=== PATIENT | male | born 1935 | race Caucasian/White ===

== ENCOUNTER 2017-09-02 15:12 | Emergency (ER) | payer OTHER, MEDICARE ==
--- NOTE | 2017-09-02 15:20 | PDOC ---
History of Present Illness - General History Source: Patient, Family Exam Limitations: No Limitations - History of Present Illness Initial Comments: 09/02/17 15:41 The patient is a 82 year old male, with a significant past medical history of asthma, COPD, hypertension, and prostate cancer, who presents to the emergency department with a cough for approximately 1 week. The patient reports his cough is nonproductive, with associated shortness of breath, wheezing, chest discomfort, and rib pain. Patient reports he has been taking Prednisone, Symbicort, and Nebulizer(Albuterol) treatments with minimal relief. However, patient reports Robitussin and cough drops temporarily alleviate his cough. He denies any recent fever, chills, headache, dizziness, nasal congestion or sore throat. He denies any diaphoresis, palpitations, or lower extremity edema. As per daughter, the patient has been in contact with his , who had flu-like symptoms and has been taking Tamiflu and Azithromycin. Patient currently denies any abdominal pain, nausea, vomiting, diarrhea, or constipation. He denies any dysuria, hematuria, frequency, or urgency. Allergies: NKDA Past Surgical History: None reported. Social History: Former matthew. Non smoker. No ETOH or recreational drug use. PCP: Dr. Villa Brusher Hand: Dr. De La Cruz <Claudy Gaming - Last Filed: 09/02/17 15:50> <Waylon Flowers - Last Filed: 09/06/17 07:36> - General Chief Complaint: Cold Symptoms Stated Complaint: cough Time Seen by Provider: 09/02/17 15:15 Past History <Claudy Gaming - Last Filed: 09/02/17 15:50> - Past Medical History Asthma: Yes COPD: Yes Disorders: Yes (PROSTATE CA. HORMONE THERAPY X 3 MONTHS) HTN: Yes - Suicide/Smoking/Psychosocial Hx Smoking History: Never smoked Hx Alcohol Use: Yes (SOCIAL) Drug/Substance Use Hx: No Substance Use Type: None <Waylon Flowers - Last Filed: 09/06/17 07:36> - Past Medical History Allergies/Adverse Reactions: Allergies Allergy/AdvReac Type Severity Reaction Status Date / Time No Known Allergies Allergy Verified 09/02/17 15:13 Home Medications: Ambulatory Orders Albuterol Sulfate Inhaler - [Ventolin HFA Inhaler -] 1 - 2 inh PO Q4H #1 inhaler 02/21/16 Budesonide/Formeterol Fumarate [SYMBICORT 160/4.5mcg -] 2 inh PO BID 02/21/16 Enalapril Maleate [Vasotec] 20 mg PO DAILY 02/21/16 Albuterol 2.5/Ipratropium 0.5 [Duoneb -] 1 amp NEB Q4H #1 box 09/02/17 Azithromycin [Zithromax -] 250 mg PO UTDICT #6 tab 09/02/17 Guaifenesin AC [Robitussin-AC] 1 - 2 tsp PO Q6H PRN #120 ml MDD 8 09/02/17 Oseltamivir Phosphate [Tamiflu] 75 mg PO BID #10 capsule 09/02/17 predniSONE [Deltasone -] 40 mg PO DAILY #30 tablet 09/02/17 Review of Systems - Review of Systems Able to Perform ROS?: Yes Comments:: 09/02/17 15:41 CONSTITUTIONAL: Absent: fever, no chills, no fatigue EYES: Absent: visual changes ENT: Absent: ear pain, no sore throat CARDIOVASCULAR: Present: chest pain Absent: no palpitations RESPIRATORY: Present: cough, wheezing, SOB GI: Absent: abdominal pain, no nausea, no vomiting, no constipation, no diarrhea GENITOURINARY: Absent: dysuria, no frequency, no hematuria MUSCULOSKELETAL: Present: Rib pain Absent: back pain, no myalgia SKIN: Absent: rash NEURO: Absent: headache <Gaming,Giomilsy - Last Filed: 09/02/17 15:50> *Physical Exam - Vital Signs Last Vital Signs Temp Pulse Resp BP Pulse Ox 98.3 F 87 20 155/88 93 L 09/02/17 15:12 09/02/17 15:12 09/02/17 15:12 09/02/17 15:12 09/02/17 15:12 - Physical Exam Comments: 09/02/17 15:50 GENERAL: Mildly tachypneic and dyspneic, with RR of 24 and O2 sat of 93 on room air. Well -appearing, well-nourished. HEENT: Normocephalic, atraumatic. PERRL, EOM intact. No posterior oropharynx erythema or exudates. NECK: No JVD, edema, or lymphadenopathy. CARDIOVASCULAR: Normal S1, S2. Regular rate and rhythm. PULMONARY: Decreased lung sounds bilaterally, but no wheezes, rales, or ronchi. There appears to be increased work of breathing. ABDOMEN: Soft, non-distended, non-tender. EXTREMITIES: Normal ROM in all four extremities. No gross deformities. SKIN: Warm, dry. No rash NEUROLOGICAL: No focal neurological deficits. <Claudy Gaming - Last Filed: 09/02/17 15:50> Medical Decision Making - Medical Decision Making Patient is much improved after nebulizer treatment. Breath sounds are full bilaterally. Respiratory rate 18 and unlabored. Oxygen saturation 97% on room air. Refill nebulizer solution with DuoNeb. Bump oral steroids. Antibiotic and Tamiflu. Close follow-up and return to ER if breathing worsens. Fully ambulatory and in no distress respiratory or otherwise at discharge with his daughter to follow-up as recommended <Waylon Flowers - Last Filed: 09/06/17 07:36> *DC/Admit/Observation/Transfer - Attestations Scribe Attestion: 09/02/17 15:43 Documentation prepared by Claudy Gaming, acting as medical operations supervisor for Waylon Loco MD. <Claudy Gaming - Last Filed: 09/02/17 15:50> - Discharge Dispostion Admit: No <Waylon Flowers - Last Filed: 09/06/17 07:36> Diagnosis at time of Disposition: Bronchitis - Discharge Dispostion Disposition: HOME Condition at time of disposition: Improved - Prescriptions Prescriptions: Albuterol 2.5/Ipratropium 0.5 [Duoneb -] 1 amp NEB Q4H #1 box Azithromycin [Zithromax -] 250 mg PO UTDICT #6 tab Guaifenesin AC [Robitussin-AC] 1 - 2 tsp PO Q6H PRN #120 ml MDD 8 PRN Reason: Cough Oseltamivir Phosphate [Tamiflu] 75 mg PO BID #10 capsule predniSONE [Deltasone -] 40 mg PO DAILY #30 tablet - Patient Instructions Printed Discharge Instructions: DI for Acute Bronchitis Additional Instructions: Medication as directed. Taper prednisone after several days if improved. Contact Dr. De La Cruz to discuss tapering regimen. Return to ER if breathing is worse, or there is high fever, chest pain.
[2017-09-02 15:33] VITALS: BP 155/88; PULSE 87; TEMP 98.3; BMI 31.6
[2017-09-02] MEDS ORDERED: ALBUTEROL SO4 2.5/IPRATROPIUM 0.5 INH SOL 3 ML VIAL.NEB. NEB ONE ×4 (15:35→16:37)
[2017-09-02] MEDS ORDERED: OSELTAMIVIR PHOSPHATE 75 MG CAPSULE PO ONE (16:25)
[2017-09-02] MEDS ORDERED: predniSONE 20 MG TABLET (UD) PO ONE (16:26)
[2017-09-02] MEDS ORDERED: predniSONE 20 MG TABLET (UD) ONE (16:37)
[2017-09-02] MEDS ORDERED: OSELTAMIVIR PHOSPHATE 75 MG CAPSULE ONE (16:37)
== END 2017-09-02 17:04 | disposition home or self-care (01) ==
LOC: FER 15:12
PROC: 3E0F7GC Introduction of Other Therapeutic Substance into Respiratory Tract, Via Natural or Artificial Opening (ICD-10-PCS; principal; 2017-09-02)
DX: J40 Bronchitis, not specified as acute or chronic (principal); J44.9 Chronic obstructive pulmonary disease, unspecified; I10 Essential (primary) hypertension; Z85.46 Personal history of malignant neoplasm of prostate
CPT/HCPCS: 71046-TC-FY; 99282-25

== ENCOUNTER 2021-12-08 16:08 | Inpatient (IN) | payer OTHER, MEDICARE ==
[2021-12-08] MEDS ORDERED: DEXAMETHASONE SOD PHOSPHATE 10 MG/1 ML VIAL IVPUSH ONE (18:02)
[2021-12-08] MEDS ORDERED: ALBUTEROL SO4 2.5/IPRATROPIUM 0.5 INH SOL 3 ML VIAL.NEB. NEB ONE ×4 (18:03→22:29)
[2021-12-08] MEDS ORDERED: DEXAMETHASONE SOD PHOSPHATE 10 MG/1 ML VIAL ONE (18:19)
[2021-12-08] MEDS ORDERED: CEFTRIAXONE 1,000 MG in DEXTROSE 5%-WATER - 50 ML IVPB ONE (18:48)
[2021-12-08] MEDS ORDERED: AZITHROMYCIN IVPB 500 MG in DEXTROSE 5%-WATER - 250 ML IVPB ONE (18:48)
[2021-12-08 19:29] LABS: VENOUS BASE EXCESS -0.4 mmol/L (-2-2); VENOUS O2 SATURATION 42.8 % (70-80); VENOUS PCO2 55.2 mmHg (38-52); VENOUS PH 7.307 (7.310-7.410)
[2021-12-08 19:30] LABS: BASO % 0.2 % (0-2.0); EOS % 0.1 % (0-4.5); HEMATOCRIT 41.3 % (35.4-49); HEMOGLOBIN 13.5 GM/dL (11.7-16.9); LYMPH % 6.7 % (8-40); MCH 29.2 pg (25.7-33.7); MCHC 32.7 g/dl (32.0-35.9); MEAN CELL VOLUME 89.4 fl (80-96); MEAN PLT VOLUME 8.8 fl (7.5-11.1); MONO % 12.4 % (3.8-10.2); NEUT % 80.6 % (42.8-82.8); PLATELET COUNT 150 10^3/uL (134-434); RBC 4.62 M/mm3 (4.00-5.60); RDW 14.1 % (11.9-15.9); WHITE BLOOD COUNT 6.1 K/mm3 (4.0-10.0)
[2021-12-08] MEDS ORDERED: CEFTRIAXONE 1 GM/50 ML BAG ONE (19:37)
[2021-12-08 19:52] LABS: ALBUMIN 3.8 g/dl (3.4-5.0); BLOOD UREA NITROGEN 19.5 mg/dL (7-18); CALCIUM 8.6 mg/dL (8.5-10.1)
[2021-12-08 19:55] LABS: CREATININE 1.2 mg/dL (0.55-1.3)
[2021-12-08 19:57] LABS: BILIRUBIN,TOTAL 0.4 mg/dL (0.2-1); TOT PROT 7.1 g/dl (6.4-8.2)
[2021-12-08] MEDS ORDERED: AZITHROMYCIN IVPB 500 MG/250 ML BAG IVPB ONE (21:16)
[2021-12-08] MEDS ORDERED: ALBUTEROL SO4 HFA INHALER IH ONE (22:29)
[2021-12-08] MEDS: ALBUTEROL SO4 HFA INHALER IH PRN (23:02)
[2021-12-09] MEDS ORDERED: ALBUTEROL SO4 2.5/IPRATROPIUM 0.5 INH SOL 3 ML VIAL.NEB. NEB ONE (00:31)
[2021-12-09] MEDS: ALBUTEROL SO4 2.5/IPRATROPIUM 0.5 INH SOL 3 ML VIAL.NEB. NEB SCH ×6 (00:34→22:07)
[2021-12-09 03:54] VITALS: BMI 33.3
[2021-12-09 08:22] LABS: BASO % 0.1 % (0-2.0); HEMATOCRIT 38.9 % (35.4-49); LYMPH % 7.3 % (8-40); MCH 29.3 pg (25.7-33.7); MCHC 33.3 g/dl (32.0-35.9); MEAN PLT VOLUME 8.8 fl (7.5-11.1); NEUT % 83.6 % (42.8-82.8); PLATELET COUNT 158 10^3/uL (134-434); RBC 4.42 M/mm3 (4.00-5.60); RDW 14.3 % (11.9-15.9); WHITE BLOOD COUNT 5.4 K/mm3 (4.0-10.0)
[2021-12-09 08:43] LABS: ALBUMIN 3.2 g/dl (3.4-5.0); BLOOD UREA NITROGEN 14.9 mg/dL (7-18); CALCIUM 8.6 mg/dL (8.5-10.1); MAGNESIUM 2.4 mg/dL (1.8-2.4)
[2021-12-09 08:46] LABS: PHOSPHOROUS 3.5 mg/dL (2.5-4.9)
[2021-12-09 08:47] LABS: BILIRUBIN,TOTAL 0.6 mg/dL (0.2-1)
[2021-12-09 08:48] LABS: TOT PROT 6.1 g/dl (6.4-8.2)
[2021-12-09] MEDS: ENALAPRIL MALEATE 10 MG TABLET PO SCH (11:34)
[2021-12-09] MEDS: ASCORBIC ACID 500 MG TABLET (FP) PO SCH (11:34)
[2021-12-09] MEDS: ZINC SULFATE 220 MG CAPSULE (FP) PO SCH (11:34)
[2021-12-09] MEDS: MULTIVITAMINS (DAILY MVI) TABLET (FP) PO SCH (11:35)
[2021-12-09] MEDS: ENOXAPARIN NA (PORCINE) 40 MG/0.4 ML DISP.SYRIN SQ SCH (11:35)
[2021-12-09] MEDS: BUDESONIDE/FORMETEROL FUMARATE 160/4.5 mcg INHALER IH SCH ×2 (11:38→21:14)
[2021-12-09] MEDS: DEXAMETHASONE SOD PHOSPHATE 4 MG/1 ML VIAL IVPUSH SCH (11:56)
[2021-12-09] MEDS ORDERED: guaiFENesin/D-METHORPHAN HB 10 ML UNIT-DOSE CUPS PO ONE (20:25)
[2021-12-09] MEDS: ALBUTEROL SO4 HFA INHALER IH PRN (21:11)
[2021-12-10] MEDS: ALBUTEROL SO4 2.5/IPRATROPIUM 0.5 INH SOL 3 ML VIAL.NEB. NEB SCH ×5 (02:28→20:38)
[2021-12-10 07:58] LABS: BASO % 0.1 % (0-2.0); HEMATOCRIT 39.9 % (35.4-49); HEMOGLOBIN 12.9 GM/dL (11.7-16.9); LYMPH % 11.9 % (8-40); MCH 28.8 pg (25.7-33.7); MCHC 32.5 g/dl (32.0-35.9); MEAN CELL VOLUME 88.6 fl (80-96); MEAN PLT VOLUME 9.1 fl (7.5-11.1); MONO % 11.3 % (3.8-10.2); NEUT % 76.7 % (42.8-82.8); PLATELET COUNT 156 10^3/uL (134-434); RDW 13.7 % (11.9-15.9); WHITE BLOOD COUNT 7.3 K/mm3 (4.0-10.0)
[2021-12-10 08:18] LABS: CALCIUM 8.1 mg/dL (8.5-10.1)
[2021-12-10 08:19] LABS: MAGNESIUM 2.2 mg/dL (1.8-2.4)
[2021-12-10 08:22] LABS: CREATININE 0.9 mg/dL (0.55-1.3); PHOSPHOROUS 3.6 mg/dL (2.5-4.9); TOT PROT 5.8 g/dl (6.4-8.2)
[2021-12-10 08:23] LABS: BILIRUBIN,TOTAL 0.2 mg/dL (0.2-1)
[2021-12-10] MEDS: DEXAMETHASONE SOD PHOSPHATE 4 MG/1 ML VIAL IVPUSH SCH (09:52)
[2021-12-10] MEDS: ZINC SULFATE 220 MG CAPSULE (FP) PO SCH (09:52)
[2021-12-10] MEDS: ENALAPRIL MALEATE 10 MG TABLET PO SCH (09:52)
[2021-12-10] MEDS: ENOXAPARIN NA (PORCINE) 40 MG/0.4 ML DISP.SYRIN SQ SCH (09:53)
[2021-12-10] MEDS: MULTIVITAMINS (DAILY MVI) TABLET (FP) PO SCH (09:53)
[2021-12-10] MEDS: ASCORBIC ACID 500 MG TABLET (FP) PO SCH (09:53)
[2021-12-10] MEDS: ALBUTEROL SO4 HFA INHALER IH PRN (10:10)
[2021-12-10] MEDS: BUDESONIDE/FORMETEROL FUMARATE 160/4.5 mcg INHALER IH SCH ×2 (11:55→21:40)
[2021-12-10] MEDS ORDERED: REMDESIVIR 200 MG in SODIUM CHLORIDE 250 ML IVPB ONE (16:45)
[2021-12-10] MEDS ORDERED: SENNOSIDES 8.6MG TABLET (FP) PO PRN (20:29)
[2021-12-10] MEDS: DOCUSATE SODIUM 100 MG CAPSULE (FP) PO SCH ×2 (21:38→21:56)
[2021-12-10] MEDS: guaiFENesin 200 MG/10 ML 10 ML UNIT-DOSE CUPS PO PRN (21:38)
[2021-12-11] MEDS: ALBUTEROL SO4 2.5/IPRATROPIUM 0.5 INH SOL 3 ML VIAL.NEB. NEB SCH ×7 (00:13→22:15)
[2021-12-11 07:34] LABS: BASO % 0.3 % (0-2.0); HEMATOCRIT 38.2 % (35.4-49); HEMOGLOBIN 12.5 GM/dL (11.7-16.9); LYMPH % 16.5 % (8-40); MCH 29.1 pg (25.7-33.7); MCHC 32.6 g/dl (32.0-35.9); MEAN CELL VOLUME 89.2 fl (80-96); MEAN PLT VOLUME 9.2 fl (7.5-11.1); MONO % 16.4 % (3.8-10.2); NEUT % 66.8 % (42.8-82.8); PLATELET COUNT 146 10^3/uL (134-434); RBC 4.28 M/mm3 (4.00-5.60); RDW 14.3 % (11.9-15.9); WHITE BLOOD COUNT 4.3 K/mm3 (4.0-10.0)
[2021-12-11 07:48] LABS: ALBUMIN 2.7 g/dl (3.4-5.0); CALCIUM 7.8 mg/dL (8.5-10.1)
[2021-12-11 07:49] LABS: BLOOD UREA NITROGEN 22.1 mg/dL (7-18)
[2021-12-11 07:51] LABS: CREATININE 0.8 mg/dL (0.55-1.3); PHOSPHOROUS 2.8 mg/dL (2.5-4.9)
[2021-12-11 07:53] LABS: BILIRUBIN,TOTAL 0.5 mg/dL (0.2-1); TOT PROT 5.5 g/dl (6.4-8.2)
[2021-12-11] MEDS: ENALAPRIL MALEATE 10 MG TABLET PO SCH (10:51)
[2021-12-11] MEDS: ZINC SULFATE 220 MG CAPSULE (FP) PO SCH (10:51)
[2021-12-11] MEDS: MULTIVITAMINS (DAILY MVI) TABLET (FP) PO SCH (10:51)
[2021-12-11] MEDS: ASCORBIC ACID 500 MG TABLET (FP) PO SCH (10:51)
[2021-12-11] MEDS: DEXAMETHASONE SOD PHOSPHATE 4 MG/1 ML VIAL IVPUSH SCH (10:52)
[2021-12-11] MEDS: ENOXAPARIN NA (PORCINE) 40 MG/0.4 ML DISP.SYRIN SQ SCH (10:52)
[2021-12-11] MEDS: BUDESONIDE/FORMETEROL FUMARATE 160/4.5 mcg INHALER IH SCH ×2 (10:52→21:43)
[2021-12-11] MEDS: REMDESIVIR 100 MG in SODIUM CHLORIDE 250 ML IVPB SCH (15:54)
[2021-12-11] MEDS: DOCUSATE SODIUM 100 MG CAPSULE (FP) PO SCH (21:42)
[2021-12-12] MEDS: ALBUTEROL SO4 2.5/IPRATROPIUM 0.5 INH SOL 3 ML VIAL.NEB. NEB SCH ×6 (02:15→22:25)
[2021-12-12] MEDS: ENALAPRIL MALEATE 10 MG TABLET PO SCH (10:29)
[2021-12-12] MEDS: DEXAMETHASONE SOD PHOSPHATE 4 MG/1 ML VIAL IVPUSH SCH (10:30)
[2021-12-12] MEDS: ASCORBIC ACID 500 MG TABLET (FP) PO SCH (10:30)
[2021-12-12] MEDS: MULTIVITAMINS (DAILY MVI) TABLET (FP) PO SCH (10:30)
[2021-12-12] MEDS: ZINC SULFATE 220 MG CAPSULE (FP) PO SCH (10:30)
[2021-12-12] MEDS: ENOXAPARIN NA (PORCINE) 40 MG/0.4 ML DISP.SYRIN SQ SCH (10:30)
[2021-12-12] MEDS: BUDESONIDE/FORMETEROL FUMARATE 160/4.5 mcg INHALER IH SCH ×2 (10:44→21:42)
[2021-12-12 14:14] LABS: CALCIUM 8.5 mg/dL (8.5-10.1)
[2021-12-12 14:15] LABS: ALBUMIN 2.9 g/dl (3.4-5.0); BLOOD UREA NITROGEN 24.5 mg/dL (7-18)
[2021-12-12 14:18] LABS: CREATININE 0.9 mg/dL (0.55-1.3)
[2021-12-12 14:20] LABS: BILIRUBIN,TOTAL 0.3 mg/dL (0.2-1); TOT PROT 5.9 g/dl (6.4-8.2)
[2021-12-12] MEDS: REMDESIVIR 100 MG in SODIUM CHLORIDE 250 ML IVPB SCH (19:17)
[2021-12-12] MEDS: DOCUSATE SODIUM 100 MG CAPSULE (FP) PO SCH (21:42)
[2021-12-12] MEDS: guaiFENesin 200 MG/10 ML 10 ML UNIT-DOSE CUPS PO PRN (21:44)
[2021-12-13] MEDS: ALBUTEROL SO4 2.5/IPRATROPIUM 0.5 INH SOL 3 ML VIAL.NEB. NEB SCH ×6 (02:24→20:10)
[2021-12-13 07:36] LABS: BASO % 0.2 % (0-2.0); EOS % 0.3 % (0-4.5); HEMATOCRIT 40.3 % (35.4-49); LYMPH % 32.7 % (8-40); MCH 28.6 pg (25.7-33.7); MCHC 32.3 g/dl (32.0-35.9); MEAN CELL VOLUME 88.5 fl (80-96); MEAN PLT VOLUME 8.8 fl (7.5-11.1); NEUT % 53.8 % (42.8-82.8); PLATELET COUNT 161 10^3/uL (134-434); RBC 4.55 M/mm3 (4.00-5.60); WHITE BLOOD COUNT 3.4 K/mm3 (4.0-10.0)
[2021-12-13 08:41] LABS: BLOOD UREA NITROGEN 22.1 mg/dL (7-18)
[2021-12-13 08:42] LABS: ALBUMIN 2.7 g/dl (3.4-5.0); BILIRUBIN,TOTAL 0.5 mg/dL (0.2-1); PHOSPHOROUS 3.3 mg/dL (2.5-4.9)
[2021-12-13 08:43] LABS: TOT PROT 5.4 g/dl (6.4-8.2)
[2021-12-13 08:45] LABS: MAGNESIUM 2.2 mg/dL (1.8-2.4)
[2021-12-13 08:54] LABS: CREATININE 0.7 mg/dL (0.55-1.3)
[2021-12-13] MEDS: DEXAMETHASONE SOD PHOSPHATE 4 MG/1 ML VIAL IVPUSH SCH (10:05)
[2021-12-13] MEDS: MULTIVITAMINS (DAILY MVI) TABLET (FP) PO SCH (10:05)
[2021-12-13] MEDS: ZINC SULFATE 220 MG CAPSULE (FP) PO SCH (10:06)
[2021-12-13] MEDS: ASCORBIC ACID 500 MG TABLET (FP) PO SCH (10:06)
[2021-12-13] MEDS: ENALAPRIL MALEATE 10 MG TABLET PO SCH (10:07)
[2021-12-13] MEDS: ENOXAPARIN NA (PORCINE) 40 MG/0.4 ML DISP.SYRIN SQ SCH (10:07)
[2021-12-13] MEDS: BUDESONIDE/FORMETEROL FUMARATE 160/4.5 mcg INHALER IH SCH ×2 (10:08→21:33)
[2021-12-13] MEDS: REMDESIVIR 100 MG in SODIUM CHLORIDE 250 ML IVPB SCH (17:00)
[2021-12-13] MEDS: DOCUSATE SODIUM 100 MG CAPSULE (FP) PO SCH (21:31)
[2021-12-14] MEDS: ALBUTEROL SO4 2.5/IPRATROPIUM 0.5 INH SOL 3 ML VIAL.NEB. NEB SCH ×4 (02:32→15:05)
[2021-12-14 07:34] LABS: BASO % 0.1 % (0-2.0); EOS % 0.3 % (0-4.5); HEMATOCRIT 41.3 % (35.4-49); HEMOGLOBIN 13.6 GM/dL (11.7-16.9); LYMPH % 30.5 % (8-40); MEAN CELL VOLUME 87.7 fl (80-96); MEAN PLT VOLUME 8.7 fl (7.5-11.1); MONO % 9.6 % (3.8-10.2); NEUT % 59.5 % (42.8-82.8); PLATELET COUNT 182 10^3/uL (134-434); RBC 4.71 M/mm3 (4.00-5.60); RDW 13.7 % (11.9-15.9); WHITE BLOOD COUNT 4.4 K/mm3 (4.0-10.0)
[2021-12-14 07:56] LABS: BLOOD UREA NITROGEN 20.8 mg/dL (7-18)
[2021-12-14 07:57] LABS: ALBUMIN 2.9 g/dl (3.4-5.0); MAGNESIUM 2.1 mg/dL (1.8-2.4)
[2021-12-14 07:58] LABS: CALCIUM 8.2 mg/dL (8.5-10.1)
[2021-12-14 08:00] LABS: CREATININE 0.7 mg/dL (0.55-1.3)
[2021-12-14 08:01] LABS: TOT PROT 5.7 g/dl (6.4-8.2)
[2021-12-14 08:02] LABS: BILIRUBIN,TOTAL 0.3 mg/dL (0.2-1)
[2021-12-14] MEDS: ENOXAPARIN NA (PORCINE) 40 MG/0.4 ML DISP.SYRIN SQ SCH (10:39)
[2021-12-14] MEDS: ZINC SULFATE 220 MG CAPSULE (FP) PO SCH (10:40)
[2021-12-14] MEDS: MULTIVITAMINS (DAILY MVI) TABLET (FP) PO SCH (10:40)
[2021-12-14] MEDS: ENALAPRIL MALEATE 10 MG TABLET PO SCH (10:40)
[2021-12-14] MEDS: DEXAMETHASONE SOD PHOSPHATE 4 MG/1 ML VIAL IVPUSH SCH (10:40)
[2021-12-14] MEDS: ASCORBIC ACID 500 MG TABLET (FP) PO SCH (10:40)
[2021-12-14] MEDS: BUDESONIDE/FORMETEROL FUMARATE 160/4.5 mcg INHALER IH SCH (10:40)
[2021-12-14] MEDS: REMDESIVIR 100 MG in SODIUM CHLORIDE 250 ML IVPB SCH (15:01)
[2021-12-14 15:58] VITALS: BP 130/79; PULSE 74; TEMP 98.6
== END 2021-12-14 18:43 | disposition home health service (06) | DRG 177 ==
LOC: JER 16:08 → JERBED 18:08 → J4W 12-09 02:45
PROVIDERS: ADMIT Hospitalist; ATTEND Internal Medicine
PROC: 3E0333Z Introduction of Anti-inflammatory into Peripheral Vein, Percutaneous Approach (ICD-10-PCS; 2021-12-08)
PROC: XW033E5 Introduction of Remdesivir Anti-infective into Peripheral Vein, Percutaneous Approach, New Technology Group 5 (ICD-10-PCS; principal; 2021-12-11)
DX: U07.1 COVID-19 (principal); J12.82 Pneumonia due to coronavirus disease 2019; J44.1 Chronic obstructive pulmonary disease with (acute) exacerbation; J98.11 Atelectasis; I10 Essential (primary) hypertension; R09.02 Hypoxemia; E11.9 Type 2 diabetes mellitus without complications; Z85.46 Personal history of malignant neoplasm of prostate
CPT/HCPCS: 0241U-QW; 36415; 71045-TC-FY; 80053; 82728; 82803; 83036; 83735; 84100; 84484; 85025; 85379; 86140; 93005; 93010; 94010; 94761; 99291; C9399; J1100

== ENCOUNTER 2025-03-07 16:35 | Emergency (ER) | payer OTHER, MEDICARE ==
[2025-03-07 16:56] VITALS: BP 137/72; PULSE 88; RESP 18; TEMP 98.4; BMI 26.6
[2025-03-07 17:11] LABS: MCHC 31.9 g/dl (32.3-36.5); MEAN CELL VOLUME 86.5 fl (79.0-92.2); MEAN PLT VOLUME 9.3 fl (9.4-12.4); RDW 13.4 % (12.6-16.6)
[2025-03-07 17:23] LABS: INR 1.14 (0.83-1.09); PROTHROMBIN TIME (PATIENT) 12.7 SEC (9.7-13.0)
[2025-03-07 17:26] LABS: URIC ACID CRYSTALS FEW /hpf (NONE SEEN)
[2025-03-07 17:32] LABS: ALK PHOS 111.0 U/L (45-117); CO2 29.0 mmol/L (21-32); CREATININE 0.9 mg/dl (0.6-1.3); GLUCOSE,RANDOM 126.0 mg/dl (74-106); SGOT/AST 21.0 U/L (15-37); SGPT/ALT 22.0 U/L (7-52); TOT PROT 6.5 g/dl (6.4-8.2)
[2025-03-07] MEDS: SODIUM CHLORIDE 1,000 ML IV SCH (18:56)
[2025-03-07] MEDS ORDERED: FAMOTIDINE 20 MG/50 ML IVPB 20 MG/50 ML MG IVPB ONE (18:57)
[2025-03-07] MEDS: FAMOTIDINE 20 MG/50 ML IVPB 20 MG/50 ML MG IVPB ONE (18:57)
[2025-03-07 22:59] LABS: HIV INTERPRETATION NEGATIVE (NEGATIVE)
[2025-03-07 23:01] LABS: HCV DIAGNOSTIC IN-HOUSE W/RFLX NON-REACTIVE (NONREACTIVE)
== END 2025-03-07 19:49 | disposition home or self-care (01) ==
LOC: FER 16:35
PROC: 3E033GC Introduction of Other Therapeutic Substance into Peripheral Vein, Percutaneous Approach (ICD-10-PCS; principal; 2025-03-07)
DX: K31.1 Adult hypertrophic pyloric stenosis (principal); R11.2 Nausea with vomiting, unspecified
CPT/HCPCS: 36415; 71045-TC-FY; 74177-TC; 80053; 81003; 81015; 83690; 85025; 85610; 86803; 87040; 87086; 87389; 99285-25; Q9967

== ENCOUNTER 2025-03-26 10:59 | Emergency (ER) | payer OTHER, MEDICARE ==
[2025-03-26 11:09] VITALS: BP 133/68; PULSE 92; RESP 18; TEMP 98.6; BMI 28.4
[2025-03-26] MEDS ORDERED: KETOROLAC TROMETHAMINE 15 MG/ML VIAL ONE (12:29)
[2025-03-26 12:35] LABS: MCHC 31.9 g/dl (32.3-36.5); MEAN CELL VOLUME 84.7 fl (79.0-92.2); MEAN PLT VOLUME 8.9 fl (9.4-12.4); RDW 13.7 % (12.6-16.6)
[2025-03-26] MEDS: KETOROLAC TROMETHAMINE 15 MG/ML VIAL IVPUSH ONE (12:41)
[2025-03-26] MEDS: SODIUM CHLORIDE 0.9% 500 ML INFUS.BAG IV ONE (12:41)
[2025-03-26 12:47] LABS: ALK PHOS 128 U/L (45-117); CO2 28 mmol/L (21-32); CREATININE 0.8 mg/dl (0.6-1.3); GLUCOSE,RANDOM 104 mg/dl (74-106); SGOT/AST 19 U/L (15-37); SGPT/ALT 18 U/L (7-52); TOT PROT 6.1 g/dl (6.4-8.2)
[2025-03-26 14:01] LABS: HCV DIAGNOSTIC IN-HOUSE W/RFLX NON-REACTIVE (NONREACTIVE); HIV INTERPRETATION NEGATIVE (NEGATIVE)
== END 2025-03-26 15:18 | disposition home or self-care (01) ==
LOC: FER 10:59
PROC: 3E0333Z Introduction of Anti-inflammatory into Peripheral Vein, Percutaneous Approach (ICD-10-PCS; principal; 2025-03-26)
DX: M54.50 Low back pain, unspecified (principal); R11.2 Nausea with vomiting, unspecified; R63.4 Abnormal weight loss; R94.31 Abnormal electrocardiogram [ECG] [EKG]
CPT/HCPCS: 36415; 71046-TC-FY; 74177-TC; 80053; 81003; 83690; 83735; 84484; 85025; 86803; 87086; 87389; 93005; 99285-25; Q9967